=== PATIENT | female | born 1995 | race Hispanic/Latino ===

== ENCOUNTER 2018-08-21 11:04 | Emergency (ER) | payer OTHER ==
[2018-08-21] MEDS ORDERED: ONDANSETRON ODT 4 MG TAB ONE (11:26)
[2018-08-21 11:41] LABS: APPEARANCE,URINE Clear (CLEAR); BILIRUBIN,URINE Negative (NEGATIVE); COLOR,URINE Dark Yellow (YELLOW); GLUCOSE, URINE (UA) Negative (NEGATIVE); HCG,QUAL RESULT POSITIVE (NEGATIVE); KETONES,URINE 15 mg/dL (NEGATIVE); LEUKOCYTE ESTERASE ,URINE Negative (NEGATIVE); NITRATE,URINE Negative (NEGATIVE); OCCULT BLOOD,URINE Nonhemolyzed Trace (NEGATIVE); PROTEIN,URINE Negative (NEGATIVE)
[2018-08-21 12:09] LABS: BACTERIA,URINE Rare /HPF (None Seen); MUCUS,URINE Moderate LPF (None Seen); RBC,URINE 0-1 /HPF (0-1); SQUAMOUS EPITHELIAL CELL,UR Few /HPF (0-2); WBC,URINE 0-1 /HPF (0-1)
== END 2018-08-21 12:48 | disposition home or self-care (01) ==
LOC: EDH 11:04
DX: O21.9 Vomiting of pregnancy, unspecified (principal); Z3A.00 Weeks of gestation of pregnancy not specified; Z98.890 Other specified postprocedural states
CPT/HCPCS: 81001; 81025

== ENCOUNTER 2022-05-15 05:51 | Emergency (ER) | payer MEDICAID ==
[~2022-05-15] VITALS: Ht 149.9 cm; Wt 95.7 kg
[2022-05-15 05:56] VITALS: BP 128/84
[2022-05-15] MEDS ORDERED: DIPH,PERTUSS(ACELL),TET VAC/PF 0.5 ML VIAL IM ONE (07:30)
[2022-05-15] MEDS ORDERED: TETANUS/DIPHTHERIA TOXOID [ADULT] 0.5 ML VIAL IM ONE ×2 (07:30→07:32)
[2022-05-15] MEDS ORDERED: LIDOCAINE HCL 1% 20 ML VIAL MISC SCH (07:30)
[2022-05-15] MEDS ORDERED: CEPH500B PO (07:54)
== END 2022-05-15 08:51 | disposition home or self-care (01) ==
LOC: EDH 05:51
DX: S91.115A Laceration without foreign body of left lesser toe(s) without damage to nail, initial encounter (principal); W22.8XXA Striking against or struck by other objects, initial encounter; Y93.K1 Activity, walking an animal; Y92.89 Other specified places as the place of occurrence of the external cause; Y99.8 Other external cause status
CPT/HCPCS: 12001; 73630; 90471; 90714; 90715; 99282